=== PATIENT | male | born 1980 | race Caucasian/White ===

== ENCOUNTER 2021-03-02 02:38 | Emergency (ER) | payer BC ==
[~2021-03-02] VITALS: Ht 172.7 cm; Wt 74.8 kg
[2021-03-02] MEDS ORDERED: PSEUDOEPHEDRINE HCL 30 MG TABLET PO ONE (03:00)
[2021-03-02] MEDS ORDERED: AMOX875T2 PO (03:05)
[2021-03-02] MEDS ORDERED: PSEUDOEPHEDRINE HCL 30 MG TABLET ONE (03:10)
--- NOTE | 2021-03-02 03:10 | NUR ---
Patient discharged to home in stable condition. Written and verbal after care instructions given. Patient verbalizes understanding of instructions. Stressed follow up or return to ER for worsening s/s.
[2021-03-02] MEDS ORDERED: AMOXicillin 250 MG CAPSULE ONE (03:14)
[2021-03-02] MEDS ORDERED: AMOXicillin 250 MG CAPSULE PO ONE (03:15)
== END 2021-03-02 03:10 | disposition home or self-care (01) ==
LOC: ER 02:44
DX: H83.8X1 Other specified diseases of right inner ear (principal)
CPT/HCPCS: A4663